=== PATIENT | male | born 1975 | race Caucasian/White ===

== ENCOUNTER 2025-07-01 13:45 | Outpatient (CLI) | payer MEDICARE, MEDICAID, SELFPAY ==
--- OUTSIDE RECORDS SUMMARY | 2025-07-01 13:50 | XMS_ITS | Data Portability ---
Author Organization [facility] Akhil Hui Address [address] [place] [address] Care Team Providers Care Law Librarian Name Role Phone DICKSON QUEZADA Cephalometric Technician LELE OWEN Rehabilitation Therapy Aide MARION BEARD Urologist Assessment No assessment recorded. Plan of Treatment Reminders Order Date Submit Date Provider Last Modified By Organization Details Last Modified Time Details Appointments ANY 15 2024 10:45A M Geovani Lopez MD Not available Not available Not available Lab CBC 2023 024 [place] [facility], [address], [address], [place], [address], 05/16/2024 06:20:28 CMP, serum or plasma 2023 024 [place] [facility], [address], [address], [place], [address], 05/16/2024 06:20:27 HbA1c (hemoglob in A1c), blood 2023 024 [place] [facility], [address], [address], [place], [address], 05/16/2024 06:20:28 TSH + free T4, serum 2023 024 [place] [facility], [address], [address], [place], [address], 05/16/2024 06:20:26 lipid panel, serum 2023 024 [place] [facility], [address], [address], [place], [address], 05/16/2024 06:20:27 Referral cardiolog ist referral 2023 024 [email or web address] [facility], [address], [address], [place], [address], 08/14/2024 17:27:39 Procedures None recorded. Surgeries None recorded. Imaging XR, hip, unilatera l 2022 023 [facility] ([facility]), [address], [place], [address], 10/02/2023 17:22:12 Medication Orders rosuvasta tin 10 mg tablet 2024 025 [id number], [address], [place], [place], [id number], 02/26/2025 14:29:54 rosuvasta tin 10 mg tablet 2023 024 [facility] #[id number], [address], [place], [id number], 05/12/2024 17:55:33 Patient TargetsNo targets recorded. Patient Instructions Encounter Date Encounter Id Patient Instructions Last Modified By Organization Details Last Modified Time 07/18/2023 [id number] A healthy lifest yle: care instructions [email or web address] Not available 07/18/2023 11:23:56 05/12/2024 [id number] chest pain: care instructions [email or web address] Not available 05/12/2024 16:57:01 gastroesophageal reflux disease (GERD): care instructions [email or web address] Not available 05/12/2024 16:57:01 A healthy lifest yle: care instructions [email or web address] Not available 05/12/2024 16:57:01 heart murmur: ca re instructions [email or web address] Not available 05/12/2024 16:57:01 high cholesterol : care instructions [email or web address] Not available 05/12/2024 16:57:01 07/21/2024 [id number] shortness of tessy ath: care instructions [email or web address] Not available 07/21/2024 11:20:39 02/26/2025 [id number] body mass index: care instructions Not available 02/26/2025 14:33:51 learning about healthy weight [email or web address] Not available 02/26/2025 14:33:50 heart murmur: ca re instructions Not available 02/26/2025 14:33:51 06/03/2025 [id number] sleep apnea: car e instructions [email or web address] Not available 06/04/2025 00:01:29 Reason for Referral Rehabilitation Therapy Aide Referral for Ch est pain Recurrent CP occasionally associated with movement Referring Physician: Ebenezer Greer, Internal Medicine, Encounter Date: 05/12/2024 Results Created Date Observation Date Name Description Value Unit Range Abnormal Flag Note LastModifiedBy Organization Detail LastModifiedTime 05/15/2005/16/2024 TSH+F REE T4 TSH 3.430 uIU/m L 0.450- 4.500 Not Available [facility] ([facility]) [address] [place], [address], 05/16/2024 06:20:26 05/15/2005/16/2024 TSH+F REE T4 T4,free(dire ct) 1.13 NG/dL 0.82-1 .77 Not Available [facility] ([facility]) [address] [place], [address], 05/16/2024 06:20:26 05/15/2005/16/2024 LIPID PANEL cholesterol, total 164 mg/dL 100-19 9 Not Available [facility] ([facility]) [address] [place], [address], 05/16/2024 06:20:27 05/15/20 24 05/16/2024 LIPID PANEL triglyceride s 107 mg/dL 0-149 Not Available [facility] ([facility]) [address] [facility] [place], [address], 05/16/2024 06:20:27 05/15/20 24 05/16/2024 LIPID PANEL HDL cholesterol 52 mg/dL >39 Not Available [facility] ([facility]) [address] [facility] [place], [address], 05/16/2024 06:20:27 05/15/20 24 05/16/2024 LIPID PANEL VLDL cholesterol rupa 19 mg/dL 5-40 Not Available [facility] ([facility]) [address] [facility] [place], [address], 05/16/2024 06:20:27 05/15/20 24 05/16/2024 LIPID PANEL LDL chol calc ([facility]) 93 mg/dL 0-99 Not Available [facility] ([facility]) [address] [place], [address], 05/16/2024 06:20:27 05/15/20 24 05/16/2024 COMP. METAB OLIC PANEL (14) glucose 106 mg/dL 70-99 above high normal Not Available [facility] ([facility]) [address] [facility] [place], [address], 05/16/2024 06:20:27 05/15/20 24 05/16/2024 COMP. METAB OLIC PANEL (14) BUN 12 mg/dL 6-24 Not Available [facility] ([facility]) [address] [facility] [place], [address], 05/16/2024 06:20:27 05/15/20 24 05/16/2024 COMP. METAB OLIC PANEL (14) creatinine 0.64 mg/dL 0.76-1 .27 below low normal Not Available [facility] ([facility]) [address] [place], [address], 05/16/2024 06:20:27 05/15/20 24 05/16/2024 COMP. METAB OLIC PANEL (14) eGFR 116 mL/mi n/1.7 3 >59 Not Available [facility] ([facility]) [address] [facility], [place], [address], 05/16/2024 06:20:27 05/15/20 24 05/16/2024 COMP. METAB OLIC PANEL (14) BUN/creatini ne ratio 19 9-20 Not Available [facility] ([facility]) [address] [facility], [place], [address], 05/16/2024 06:20:27 05/15/20 24 05/16/2024 COMP. METAB OLIC PANEL (14) sodium 140 mmol/ L 134-14 4 Not Available [facility] ([facility]) [address] [facility], [place], [address], 05/16/2024 06:20:27 05/15/20 24 05/16/2024 COMP. METAB OLIC PANEL (14) potassium 4.6 mmol/ L 3.5-5. 2 Not Available [facility] ([facility]) [address] [facility], [place], [address], 05/16/2024 06:20:27 05/15/20 24 05/16/2024 COMP. METAB OLIC PANEL (14) chloride 99 mmol/ L 96-106 Not Available [facility] ([facility]) [address] [facility], [place], [address], 05/16/2024 06:20:27 05/15/20 24 05/16/2024 COMP. METAB OLIC PANEL (14) carbon dioxide, total 25 mmol/ L 20-29 Not Available [facility] ([facility]) [address] [facility], [place], [address], 05/16/2024 06:20:27 05/15/20 24 05/16/2024 COMP. METAB OLIC PANEL (14) calcium 9.1 mg/dL 8.7-10 .2 Not Available [facility] ([facility]) [address] [place], [address], 05/16/2024 06:20:27 05/15/20 24 05/16/2024 COMP. METAB OLIC PANEL (14) protein, total 7.1 g/dL 6.0-8. 5 Not Available [facility] ([facility]) [address] [place], [address], 05/16/2024 06:20:27 05/15/20 24 05/16/2024 COMP. METAB OLIC PANEL (14) albumin 4.3 g/dL 4.1-5. 1 Not Available [facility] ([facility]) [address] [place], [address], 05/16/2024 06:20:27 05/15/20 24 05/16/2024 COMP. METAB OLIC PANEL (14) globulin, total 2.8 g/dL 1.5-4. 5 Not Available [facility] ([facility]) [address] [place], [address], 05/16/2024 06:20:27 05/15/20 24 05/16/2024 COMP. METAB OLIC PANEL (14) bilirubin, total 0.5 mg/dL 0.0-1. 2 Not Available [facility] ([facility]) [address] [place], [address], 05/16/2024 06:20:27 05/15/20 24 05/16/2024 COMP. METAB OLIC PANEL (14) alkaline phosphatase 89 IU/L 44-121 Not Available [facility] ([facility]) [address] [place], [address], 05/16/2024 06:20:27 05/15/20 24 05/16/2024 COMP. METAB OLIC PANEL (14) AST (SGOT) 21 IU/L 0-40 Not Available [facility] ([facility]) [address] [facility], [place], [address], 05/16/2024 06:20:27 05/15/20 24 05/16/2024 COMP. METAB OLIC PANEL (14) ALT (SGPT) 19 IU/L 0-44 Not Available [facility] ([facility]) [address] [facility], [place], [address], 05/16/2024 06:20:27 05/15/20 24 05/15/2024 HEMOG LOBIN A1C hemoglobin A1C 6.1 % 4.8-5. 6 above high normal Predi abete s: 5.7 - 6.4 Diabe maria guadalupe: >6.4 Glyce amy contr ol for adult s with diabe maria guadalupe: <7.0 Not Available [facility] ([facility]) [address] [facility], [place], [address], 05/16/2024 06:20:28 05/15/20 24 05/15/2024 CBC, PLATE LET, NO DIFFE RENTI AL WBC 12.2 x10e3 /uL 3.4-10 .8 above high normal Not Available [facility] ([facility]) [address] [facility], [place], [address], 05/16/2024 06:20:28 05/15/20 24 05/15/2024 CBC, PLATE LET, NO DIFFE RENTI AL RBC 5.09 x10e6 /uL 4.14-5 .80 Not Available [facility] ([facility]) [address] [place], [address], 05/16/2024 06:20:28 05/15/20 24 05/15/2024 CBC, PLATE LET, NO DIFFE RENTI AL hemoglobin 14.4 g/dL 13.0-1 7.7 Not Available [facility] ([facility]) [address] [place], [address], 05/16/2024 06:20:28 05/15/20 24 05/15/2024 CBC, PLATE LET, NO DIFFE RENTI AL hematocrit 46.3 % 37.5-5 1.0 Not Available [facility] ([facility]) [address] [facility], [place], [address], 05/16/2024 06:20:28 05/15/20 24 05/15/2024 CBC, PLATE LET, NO DIFFE RENTI AL MCV 91 fL 79-97 Not Available [facility] ([facility]) [address] [facility], [place], [address], 05/16/2024 06:20:28 05/15/2005/15/2024 CBC, PLATE LET, NO DIFFE RENTI AL MCH 28.3 pg 26.6-3 3.0 Not Available [facility] ([facility]) [address] [facility], [place], [address], 05/16/2024 06:20:28 05/15/20 24 05/15/2024 CBC, PLATE LET, NO DIFFE RENTI AL MCHC 31.1 g/dL 31.5-3 5.7 below low normal Not Available [facility] ([facility]) [address] [facility], [place], [address], 05/16/2024 06:20:28 05/15/2005/15/2024 CBC, PLATE LET, NO DIFFE RENTI AL RDW 14.0 % 11.6-1 5.4 Not Available [facility] ([facility]) [address] [facility], [place], [address], 05/16/2024 06:20:28 05/15/2005/15/2024 CBC, PLATE LET, NO DIFFE RENTI AL platelets 304 x10e3 /uL 150-45 0 Not Available [facility] ([facility]) [address] [facility], [place], [address], 05/16/2024 06:20:28 06/12/2006/12/2024 trans -thor acic echoc ardio gram (TTE) (PROC ) No observ ation record ed. [address] [facility] [address], [place], [address], 06/19/2024 10:35:44 06/18/20 24 06/12/2024 home sleep study No observ ation record ed. [address] [facility] [address], [place], [address], 06/19/2024 10:39:10 06/29/20 24 06/29/2024 XR, chest No observ ation record ed. [address] [place], [address], 06/30/2024 10:26:28 06/29/20 24 06/29/2024 CT, angio gram, chest , w/ contr ast No observ ation record ed. [address] [place], [address], 06/30/2024 10:26:50 07/01/20 24 07/01/2024 XR, chest No observ ation record ed. [address] [place], [address], 07/02/2024 07:30:14 07/03/20 24 07/03/2024 XR, abdom en No observ ation record ed. [address] [place], [address], 07/07/2024 10:47:35 07/04/20 24 07/04/2024 XR, chest No observ ation record ed. [address] [place], [address], 07/07/2024 10:47:48 07/21/20 24 07/21/2024 XR, chest No observ ation record ed. [address] [place], [address], 07/22/2024 00:43:20 07/31/20 24 07/07/2024 sleep study , diagn ostic (PROC ) No observ ation record ed. [address] [facility] [address], [place], [address], 08/06/2024 02:25:43 05/28/20 25 05/28/2025 CT, abdom en + pelvi s, w/o contr ast No observ ation record ed. [address] [facility] [address] [place], [address], 2025 17:36:23 05/28/20 25 05/28/2025 XR, chest No observ ation record ed. [address] [place], [address], 2025 17:36:24 05/29/20 25 05/28/2025 CT, abdom en + pelvi s, w/o contr ast No observ ation record ed. [address] [place], [address], 2025 17:36:24 05/29/20 25 05/28/2025 CT, abdom en + pelvi s, w/o contr ast No observ ation record ed. [address] [place], [address], 2025 17:36:24 Result Notes None recorded. Problems Name Problem SNOMED Code Status Onset Date Resolution Date Notes Provider Name and Address Organization Details Recorded Time Morbid obesity 934828611 Completed 02/05/2018 Malgorzata Damon PA-C Attn: Accounting ,[address] [place], [address] , [facility] 8 09:59:38 Developm ental disorder 7034450 Active Malgorzata Damon PA-C Attn: Accounting ,[address] [place], [address] , [place] [facility] 6 11:43:40 Increase d blood pressure 61846011 Active Malgorzata Damon PA-C Attn: Accounting ,[address] [facility], [place], [address] , [place] [facility] 6 11:43:40 Family history of malignan t neoplasm of gastroin testinal tract 024129244 Active 2016 Malgorzata Damon PA-C Attn: Accounting ,[address] [facility], [place], [address] , [place] [facility] 7 13:58:01 Nocturia 031799193 Active 2016 Malgorzata Damon PA-C Attn: Accounting ,[address] [place], [address] , [facility] 7 13:58:04 Diarrhea 52571135 Active 2017 Malgorzata Damon PA-C Attn: Accounting ,[address] [place], [address] , [place] [facility] 8 10:38:11 Urinary incontin ence 913945935 Active 2017 Malgorzata Damon PA-C Attn: Accounting ,[address] [place], [address] , [place] - [facility] 8 10:38:12 Bereavem ent 79403128 Active 2017 Mom 2014 , Dad January 2019 stage 4 lung cancer , younger brother commited suicide in April , shot himself in the heart . Jarod Malagon PA-C Attn: Accounting ,[address] [place], [address] , [place] [facility] 1 11:38:47 Abnormal urine odor 1549342 Active 2020 Jarod Malagon PA-C Attn: Accounting ,[address] [place], [address] , [place] [facility] 11:27:50 Chest pain 71777343 Active 2020 Jarod Malagon PA-C Attn: Accounting ,[address] [place], [address] , [place] [facility] 11:32:51 Chronic anxiety 238832653 Active 2020 Jarod Malagon PA-C Attn: Accounting ,[address] [place], [address] , [place] [facility] 11:39:40 Obese 363742737 Completed 202005/12/2024 Ebenezer Greer MD Attn: Accounting ,[address] [place], [address] , [place] [facility] 4 16:54:08 Acute otitis media 0775022 Active 2020 Jarod Malagon PA-C Attn: Accounting ,[address] [place], [address] , [place] [facility] 11:46:18 Allergic rhinitis 17740314 Active 2020 Jarod Malagon PA-C Attn: Accounting ,[address] [place], [address] , [place] [facility] 11:46:47 Hyperlip idemia 94328310 Active 2020 Jarod Malagon PA-C Attn: Accounting ,[address] [place], [address] , [place] [facility] 09:35:56 Vitamin D below referenc e range 353868699 Active 2020 Jarod Malagon PA-C Attn: Accounting ,[address] [place], [address] , [place] [facility] 09:45:20 Plantar fasciiti s 247740577 Active 2021 right Jarod Malagon PA-C Attn: Accounting ,[address] [place], [address] , [place] [facility] 2 10:28:31 Labdonovant madeline 07149802 Active 2021 Jarod Malagon PA-C Attn: Accounting ,[address] [facility], [place], [address] , [place] [facility] 2 10:26:56 Gastroes ophageal reflux disease 986225801 Active 2021 Jarod Malagon PA-C Attn: Accounting ,[address] [facility], [place], [address] , [place] [facility] 2 10:59:04 Elevated blood-pr essure reading without diagnosi s of hyperten luis enrique 711680402 Active 2023 Ebenezer Greer MD Attn: Accounting ,[address] [facility], [place], [address] , [place] [facility] 4 16:50:56 Heart murmur 01641756 Active 2023 Ebenezer Greer MD Attn: Accounting ,[address] [facility], [place], [address] , [place] [facility] 4 16:54:23 Congesti ve heart failure 83887205 Active 2023 normal ejection fraction per cardiolo gist 2023 Geovani Lopez MD Attn: Accounting ,[address] [place], [address] , [place] [facility] 5 23:59:22 Dyspnea 828014021 Active 2023 Ebenezer Greer MD Attn: Accounting ,[address] [place], [address] , [place] [facility] 4 11:19:26 History of SARS-CoV -2 00752097609 2892695 Active 07/01 Ebenezer Greer MD Attn: Accounting ,[address] [place], [address] , [place] [facility] 4 11:20:07 Body mass index 40+ - severely obese 378094081 Active 2024 Ebenezer Greer MD Attn: Accounting ,[address] , [place], [address] , [place] [facility] 14:32:06 Problem Notes None recorded. Medical Equipment None Reported. Allergies No known drug allergies Medications Name Sig Start Date Stop Date Status Note LastModified by Organization Details LastModified Time furosemide 40 mg tablet TAKE 1 TABLET BY MOUTH EVERY DAY 02/26 completed Not Available Not Available Not Available azithromycin 250 mg tablet TAKE 1 TABLET BY MOUTH DAILY FOR 5 DAYS 07/21 completed Not Available Not Available Not Available meclizine 12.5 mg tablet TAKE 1 TABLET BY MOUTH THREE TIMES DAILY NEEDED 05/12 completed Not Available Not Available Not Available ciprofloxaci n 500 mg tablet TAKE 1 TABLET BY MOUTH EVERY 12 HOURS FOR 7 DAYS active Not Available Not Available No t Available omeprazole 20 mg capsule,matheus yed release 05/12 completed Not Available Not Available Not Available hydrocortiso ne 2.5 % topical ointment 11/10 completed Not Available Not Available Not Available hydroxyzine HCl 10 mg tablet TAKE 1 TO 2 TABLETS BY MOUTH UP TO THREE TIMES DAILY NEEDED FOR ANXIETY 05/12 completed Not Available Not Available Not Available loratadine 10 mg tablet TAKE 1 TABLET BY MOUTH EVERY DAY 05/12 completed Not Available Not Available Not Available amoxicillin 875 mg-potassium clavulanate 125 mg tablet Take 1 tablet every 12 hours by oral route for 10 days. 05/23 completed Not Available Not Available Not Available amoxicillin 500 mg-potassium clavulanate 125 mg tablet TAKE 1 TABLET BY MOUTH EVERY 12 HOURS AFTER MEALS FOR 7 DAYS 03/10 completed Not Available Not Available Not Available cholecalcife rol (vitamin D3) 25 mcg (1,000 unit) capsule Take 1 capsule every day by oral route with meals for 30 days. 03/10 completed Not Available Not Available Not Available rosuvastatin 10 mg tablet TAKE 1 TABLET BY MOUTH EVERY DAY IN THE EVENING active Not Available Not Available No t Available cranberry 03/10 completed Not Available Not Available Not Available vitamin B complex 03/10 completed Not Available Not Available Not Available Glucosamine 06/17 completed OTC Not Available Not Available Not Available Vitamin D3 03/10 completed Not Available Not Available Not Available multivitamin 06/17 completed OTC Not Available Not Available Not Available Probiotic 06/17 completed OTC Not Available Not Available Not Available Vitamin B12 03/10 completed Not Available Not Available Not Available Vitals Date Recorded Body height Body mass index (BMI) Body weight Heart rate Oxygen saturation Oxygen saturation in Arterial blood by Pulse oximetry Systolic And Diastolic Provider Name and Address Organization Details Last Updated DateTime 5 154.94 cm 58 kg/m2 706795. 86 g 112 /min 91 % 91 % 148/72 mm[Hg] Kayla Wasserman MA [facility] 5 14:10:02 Date Recorded Body height Body mass index (BMI) Body weight Oxygen saturation Oxygen saturation in Arterial blood by Pulse oximetry Heart rate Systolic And Diastolic Provider Name and Address Organization Details Last Updated DateTime 4 154.94 cm 59 kg/m2 760189. 82 g 96 % 96 % 109 /min 164/78 mm[Hg] Cheli Guerra MA [facility] 4 16:04:54 Date Recorded Body height Body mass index (BMI) Body weight Heart rate Systolic And Diastolic Provider Name and Address Organization Details Last Updated DateTime 06/03/2025 154.94 cm 59.7 kg/m2 736343.1 9 g 96 /min 132/86 mm[Hg] Kayla Wasserman MA [facility] 06/03/2025 14:36:12 Date Recorded Oxygen saturation Oxygen saturation in Arterial blood by Pulse oximetry Inhaled oxygen flow rate Provider Name and Address Organization Details Last Updated DateTime 06/03/2025 93 % 93 % 2 L/min Elizabeth Olivares LPN [facility] 06/03/2025 14:41:48 Date Recorded Body height Body mass index (BMI) Body weight Heart rate Oxygen saturation Oxygen saturation in Arterial blood by Pulse oximetry Systolic And Diastolic Provider Name and Address Organization Details Last Updated DateTime 3 154.94 cm 56.7 kg/m2 466946. 71 g 87 /min 96 % 96 % 142/80 mm[Hg] Krissy Olivera MA [facility] 3 10:51:57 Date Recorded Body height Body mass index (BMI) Body weight Heart rate Oxygen saturation Oxygen saturation in Arterial blood by Pulse oximetry Inhaled oxygen flow rate Systolic And Diastolic Provider Name and Address Organization Details Last Updated DateTime 4 154.94 cm 58.4 kg/m2 825165. 04 g 106 /min 89 % 89 % 4 L/min 138/84 mm[Hg] Cristiane Malagon [place] [facility] 4 10:50:42 Social History Question Answer Notes LastModified by Organizat ion Details LastModified Time Tobacco Smoking Status Never Smoker [place], [place] - [facility] 11/10/2015 10:24:07 Do You Have An Advance Directive? No [email or web address] Information not available 11/10/2015 What Is Your Level Of Caffeine Consumption? None [email or web address] Information not available 11/10/2015 How Much Tobacco Do You Chew? None [email or web address] Information not available 11/10/2015 What Type Of Diet Are You Following? REGULAR [email or web address] Information not available 11/10/2015 Which Illicit Or Recreational Drugs Have You Used? 0 [email or web address] Information not available 11/10/2015 Education 12 Information no t available 11/10/2015 What Is The Highest Grade Or Level Of School You Have Completed Or The Highest Degree You Have Received? [id number] Information not available 07/18/2023 Are There Any Guns Present In Your Home? No [email or web address] Information not available 11/10/2015 Hard Of Hearing Or Deaf In One Or Both Ears? No [email or web address] Information not available 11/10/2015 Legally Blind In One Or Both Eyes? No [email or web address] Information no t available 11/10/2015 Live Alone Or With Others? With Others Sister Information not available 11/10/2015 What Was The Date Of Your Most Recent Tobacco Screening? 06/03/2025 Information not available 06/03/2025 How Many Children Do You Have? 0 [email or web address] Information not available 11/10/2015 What Is Your Relationship Status? Single Information not available 07/18/2023 Do You Use Your Seat Belt Or Car Seat Routinely? Yes Information not available 07/18/2023 Seat Belts Used Routinely Yes [email or web address] Information not available 11/10/2015 Are You Sexually Active? No Information not available 11/10/2015 Smoke Alarm In Home Yes [email or web address] Information not available 11/10/2015 Do You Have Smoke And Carbon Monoxide Detectors In Your Home? Yes Information not available 03/10/2022 At What Age Did You Start Smoking Tobacco? 0 [email or web address] Information not available 11/10/2015 Are You Passively Exposed To Smoke? No [email or web address] Information no t available 11/10/2015 How Much Tobacco Do You Smoke? No Information not available 11/10/2015 General Stress Level Low [email or web address] Information not available 11/10/2015 Do You Use Sunscreen Routinely? Yes Information not available 03/10/2022 Has Tobacco Cessation Counseling Been Provided? Yes Information not available 02/26/2025 On What Date Was Tobacco Cessation Counseling Provided? 06/03/2025 Information not available 06/03/2025 How Many Years Have You Smoked Tobacco? 0 [email or web address] Information not available 11/10/2015 Sex: Unknown Functional Status Question Answer Note LastModified by Organizat ion Details LastModified Time Do you use any illicit or recreational drugs? No Information not available 03/10/2022 Do you or have you ever used any other forms of tobacco or nicotine? No [email or web address] Information not available 05/12/2024 What is your level of alcohol consumption? None [email or web address] Information not available 11/10/2015 Are you currently employed? No Information not available 07/18/2023 Are you able to care for yourself independently? Yes [email or web address] Information not available 11/10/2015 What is your exercise level? Occasional Information not available 11/10/2015 Mental Status Question Answer Note LastModified by Organization D etails LastModified Time Do you feel stressed (tense, restless, nervous, or anxious, or unable to sleep at night)? [id number] Information not available 07/18/2023 Family History Relationship Description Onset Age of this Age Resolved Age Notes LastModified by Organization Details LastModified Time Father Hypertensive disorder eewig Not available 2015 10:57:30 Father Malignant neoplasm of skin eewig Not available 2015 10:57:30 Brother Asthma eewig Not available 10:57:30 Brother Hypertensive disorder eewig Not available 2015 10:57:30 Mother Malignant tumor of stomach 63 64 eewig Not available 2015 10:57:30 Maternal Grandmother Malignant neoplasm of rectum 45 eewig Not available 2016 09:53:00 Medical History Condition Response Coronary Artery Disease N Other N Atrial Fibrillation N High Blood Pressure N Thyroid Problems N Kidney or Bladder Problems N Depression N COPD N Blood Clots N GI Problems N Skin Problems N Anemia N Heart Attack (AK) N Diabetes N Anxiety Disorder N Muscle, Joint, or Bone Problems N Seizures/Epilepsy N Acid Reflux (GERD) N Cancer N Stroke N Allergies N Asthma N High Cholesterol Y Hepatitis N Liver Disease N Headaches N Osteoporosis N Heart Failure Y Immunizations Vaccine Type Date Status Note Provider Nam e and Address Organization Details Recorded Time Tdap 02/05/2018 completed Not Available [employer] 10/25/2019 02:44:13 Past Encounters Encounter ID Performer Location Encounter Start Date Encounter Closed Date Diagnosis/Indication Diagnosis SNOMED-CT Code Diagnosis ICD10 Code Diagnosis IMO Codes Diagnosis Note [id number] Shannon Malagon MD [facility] [place] (Adult Med) [address] [place] [address] [phone] 0 11/10/2015 09:53:26 11/10/2015 11:44:07 Adult health examination 660981425 Z00.01 Here for [employer] physical paperwork - cleared to work 40YO male with cognitive disability here to establish care. His sister is his guardian. He recently moved in with his sister because their mother just from gastric cancer. No complaints today. Morbid obesity 274837835 E66.01 He recently lost 50lbs and is continuing to work on this. Discussed that by eating better and exercising he will lose weight and decrease his BP in order to keep him away from BP medication s Developmen roni disorder 6518910 F89 Increased blood pressure 53367037 R03.0 States that he gets nervous around new people RTC 6 months for BP check He recently lost 50lbs and is continuing to work on this. Discussed that by eating better and exercising he will lose weight and decrease his BP in order to keep him away from BP medication s [id number] [facility] [address] [place] [address] [phone] 0 05/09/2017 09:13:48 05/10/2017 10:56:01 Increased blood pressure 23787888 R03.0 130/90 - basically WNL - States that he gets nervous around new people RTC 6 months for BP checkHas lost another 20lbs over the last 1.5 years Discussed that by eating better and exercising he will lose weight and decrease his BP in order to keep him away from BP medication s Nocturia 542028011 R35.1 UA negative - will refer to urology at this time - patient declined exam Adult heal th examination 419871848 Z00.01 Increased frequency of urination 501412192 R35.0 Morbid obesity 616202432 E66.01 Has a 20lbs weight loss and is continuing to work on this. Discussed that by eating better and exercising he will lose weight and decrease his BP in order to keep him away from BP medication s Family his tory of malignant neoplasm of gastrointestinal tract 002894019 Z80.0 Will refer to GI at this time [id number] MD Roshni Luis (Adult Med) [address] [place] [address] [phone] 0 02/05/2018 09:31:03 02/05/2018 10:49:51 Body mass index 40+ - severely obese 486311406 Z68.42 Advised 30 minutes of exercise 5 days/week Advised to not drink his calories Advised 3 balanced meals/day with plenty of fruits and vegetables Active or passive immunization 946288885 Z23 Urinary incontinence 165 083792 R32 Will re-refer to urology for evaluation discussed stopping the use of Depends as it may be that they encourage him to urinate when he desires Diarrhea 03299912 R19.7 Will refer back to GI for food allergy w/u Developmen roni disorder 1732361 F89 Bereavement 29868181 Z63 .4 Advised to schedule an appointmen t [facility] counseling on their way out of the office today [id number] HANNY Gabriel (Adult Med) [address] [place] [address] [phone] 0 06/17/2021 10:49:14 06/17/2021 13:36:25 Urinary incontinence 179561895 R32 Abnormal urine odor 8769 003 R82.90 Chest pain 59236370 R07. 9 Chronic anxiety 30643555 9 F41.9 Family his tory of malignant neoplasm of gastrointestinal tract 964828099 Z80.0 Obese 891177225 E66.9 Acute otitis media 20465 03 H66.91 Allergic rhinitis 226417 04 J30.9 Bereavement 48705926 Z63 .4 [id number] [facility] [address] [place] [address] [phone] 0 11/17/2021 15:54:11 11/18/2021 11:34:17 Otitis media of left ear 3488695478 066250 H66.92 Will need ABS, they agreed. Right ear appears to be normal, left ear appears to be congested with some erythema, no driange, intact drum. Urinary incontinence 165 388586 R32 [id number] MD Roshni Poon (Adult Med) [address] [place] [address] [phone] 0 03/10/2022 09:39:50 03/13/2022 10:55:54 Acute left otitis media 379628352 H66.92 Labyrinthitis 63999000 H 83.03 Plantar fasciitis 495657 003 M72.2 right Hyperlipidemia 39727360 E78.5 Vitamin D below reference range 334244078 E55.9 Allergic rhinitis 259669 04 J30.9 [id number] [facility] [address] [place] [address] [phone] 0 05/23/2022 10:15:09 05/24/2022 11:28:27 Allergic rhinitis 87953553 J30.9 Chronic anxiety 82379706 9 F41.9 Vitamin D below reference range 962271061 E55.9 Hyperlipidemia 70953180 E78.5 Gastroesop hageal reflux disease 533322096 K21.9 Developmen roni disorder 7748720 F89 Obese 352288989 E66.9 [id number] MD Roshni Poon (Adult Med) [address] [place] [address] [phone] 0 12/18/2022 16:35:21 12/20/2022 10:43:44 Morbid obesity 524025716 E66.01 BMI is 53.5, diet, exercise and lose some weight. Left flank pain 52033204 9 R10.9 Will do urinalysis as screening. UA is negative, possible IBS, will refer to dietitian /regarding the possible IBS and morbid obesity. [id number] MD Roshni Poon (Adult Med) [address] [place] [address] 26237-562 0 07/18/2023 10:39:51 07/23/2023 14:34:49 Pain of left hip joint 6671387500 72340 M25.552 they agreed for x Ray. Morbid obesity 883584516 E66.01 BMI is 53.5, diet, exercise and lose some weight. BMI went up to 56.7 as 07-18-23. sister said that he lives with her, , they will work out something to lose weight. ok for x ray .No injury. Colon canc er screening declined 4545694029 9109 Z53.20 He declined 07-18-23. HIV screen ing declined 0474221951 09908 Z53.20 He declined 07-18-23. [id number] MD Roshni Watson (Adult Med) [address] [place] [address] [phone] 0 05/12/2024 15:04:27 05/16/2024 20:26:09 Morbid obesity 661707934 E66.01 Hyperlipidemia 01764939 E78.5 Gastroesop hageal reflux disease 027324571 K21.9 Chest pain 58892399 R07. 9 Elevated blood-pressure reading without diagnosis of hypertension 243263012 R03.0 Continue to monitor BP Developmen roni disorder 6826203 F89 Heart murmur 98062702 R0 1.1 [id number] MD Roshni Watson (Adult Med) [address] [place] [address] 78405-353 0 07/21/2024 10:12:28 07/22/2024 09:11:43 Dyspnea 714130667 R06.00 Pt and sister referred back to ED [id number] MD Roshni Watson (Adult Med) [address] [place] [address] 02544-291 0 02/26/2025 13:59:05 02/27/2025 10:32:42 Hyperlipidemia 07091346 E78.49 Labs on return OV Heart murmur 29837392 R0 1.1 Body mass index 40+ - severely obese 277281504 E66.01 Z68.43 [id number] Geovani Lopez MD [facility] (Adult Med) [address] [place] [address] 06/03/2025 13:54:27 06/04/2025 10:52:33 Prediabetes 190684352 R73.03 [id number] Education on healthy lifestyle Obstructiv e sleep apnea syndrome 07869407 G47.33 [id number] Pt w/o cpap, education to sister on importance of acquiring cpap machine. See pulmonolog ist Chronic hy poxemic respiratory failure 996245151 J96.11 [id number] Cause unclear, previously followed by pulmonolog ist. Developmen roni disorder 2087571 F89 Supportive , care for by sister Health Concerns Section Related Observation LastModified by Organization Detai ls LastModified Time None Recorded Concern Status LastModified by Organization Details LastModified Time None Recorded Advance Directives Directive N: Payers Insurance Date Sequence Insurance Name Policy Number Policy [place] Covered Member ID [place] Member ID Guarantor Name 05/16/2025 2 [place] WHEN MEDICARE OR MEDICARE REPLACEMENT PRIMARY) Taurus Olivera [id number] Taurus Olivera 05/31/2025 [place] [facility] Taurus Olivera [id number] Taurus Olivera 05/31/2025 1 [place] Taurus Olivera [id number] Taurus Olivera 09/07/2021 2 [place] [facility] Taurus Olivera [id number] Taurus Olivera Notes Date Note Type Note Provider Name and Address Organization Details Recorded Time 07/18/2023 text/html ROS as noted in the HPI Office visit, came with his care transport nurse for whom he lives in with. C/C left hip sore, no injury. for few days. Dejan Fernando MD Attn: Accounting,[address] [facility], [place], [address], [facility] 07/18/2023 15:53:29 05/12/2024 text/html Here accompanied by his sister Susannah Olivera with whom he lives. He has complained of chest pain but has not been seen by cardiology. He has been gaining weight since stopping his job in 2019. His sister watches his diet. Ebenezer Greer MD Attn: Accounting, [address] [facility], [place], [address], [facility] 05/12/2024 16:57:36 07/21/2024 text/html Accompanied by his sister/guardian. Here for post hosp[ital f/u. He is SOB. Recently admitted to ICU for acute resp failure. Sent home on O2. VS 89% [id number] back to ED Ebenezer Greer MD Attn: Accounting, [address] [facility], [place], [address], [facility] 07/21/2024 11:21:20 02/26/2025 text/html here accompanied by his sister. Needs med refill Ebenezer Greer MD Attn: Accounting, [address] [facility], [place], [address], [facility] 02/26/2025 14:34:18 06/03/2025 text/html Pt here for f/u. Recent seen in er for bladder infection, and small pleural effusion with atelectasis. Pt treated with cipro. H/o pre-diabetes Pt has sleep apnea but cpap defective and sent back to company about 6 months ago. Last sleep study 1 year ago. Pt needs letter for handicap shower installation. Pt lives with sister (mapper). Pt has developmental disorder with mild-mod intellectual deficit. Pt is on continous o2 supplement for unclear reason. H/o hypoxemia without o2. Pt previously followed by health spa manager Geovani Lopez MD Attn: Accounting,[address] [facility], [place], [address], [place] [facility] 06/04/2025 00:02:02
== END 2025-07-01 13:46 | disposition home or self-care (01) ==
LOC: ANHAUDIO 13:47
DX: H90.3 Sensorineural hearing loss, bilateral (principal); H93.13 Tinnitus, bilateral; H74.8X3 Other specified disorders of middle ear and mastoid, bilateral
CPT/HCPCS: 92557; 92567